=== PATIENT | female | born 1965 ===

== ENCOUNTER 2019-10-05 07:07 | Outpatient (REF) | payer SELFPAY ==
[2019-10-05 11:01] LABS: Cholesterol 223 mg/dL (0-200); Glucose 123 mg/dL (65-115); HDL Cholesterol 72 mg/dL (60-100); LDL Cholesterol Calculated 129 mg/dL (50-129); LDL HDL Ratio 1.79 RATIO (0.00-3.22); Thyroid Stimulating Hormone 3.81 uIU/mL (0.27-4.20); Triglycerides 108 mg/dL (0-150)
[2019-10-05 11:29] LABS: Estmated Average Glucose 137; Hemoglobin A1C 6.4 % (4.0-6.0)
== END 2019-10-05 07:08 | disposition home or self-care (01) ==
LOC: LAB 07:07
PROVIDERS: Visit Provider Dermatology
DX: Z01.89 Encounter for other specified special examinations (principal)
CPT/HCPCS: 80061; 82947; 83036; 84443